=== PATIENT | female | born 1985 | race Caucasian/White ===

== ENCOUNTER 2017-02-10 14:09 | Observation (INO) | payer OTHER ==
[2017-02-10 14:16] VITALS: RESP 16; TEMP 98.3; O2SAT 100
[2017-02-10] MEDS ORDERED: Sodium Chloride 0.9% 1,000 ML IV STA ×2 (15:04→17:06)
--- NOTE | 2017-02-10 15:48 | ED PDOC ---
HPI: Female Pain Time Seen by Provider: 02/10/17 14:49 Chief Complaint (Nursing): Female Genitourinary Chief Complaint (Provider): Pelvic pain History Per: Patient History/Exam Limitations: no limitations Onset/Duration Of Symptoms: Hrs (x2) Current Symptoms Are (Timing): Still Present Additional Complaint(s): Galina Tyler is a 31 year old female with previous medical history of kidney stones, asthma and breast cancer, who presents to the emergency department with a complaint of sudden, severe pelvic pain associated with left back pain, nausea and bleeding (unknown if source came from vagina or urethra) status post inserting vaginal douche while showering 2 hours prior to arrival. Denied any further medical complaints. Patient has an IUD in place and stated pain is comparable to prior birthing and kidney stones experience. PMD: none provided Past Medical History Reviewed: Historical Data, Nursing Documentation, Vital Signs Vital Signs: Last Vital Signs Temp 98.3 F 02/10/17 14:14 Pulse 77 02/10/17 14:14 Resp 16 02/10/17 14:14 BP 117/66 02/10/17 14:14 Pulse Ox 100 02/10/17 14:14 - Medical History PMH: Asthma, Kidney Stones Other PMH: breast CA - Surgical History Surgical History: No Surg Hx - Family History Family History: States: Unknown Family Hx - Social History Current smoker - smoking cessation education provided: No Ex-Smoker (has not smoked in the last 12 months): No Alcohol: Social Drugs: Denies - Allergies Allergies/Adverse Reactions: Allergies Allergy/AdvReac Type Severity Reaction Status Date / Time Penicillins Allergy SWELLING Verified 02/10/17 14:14 Review of Systems ROS Statement: Except As Marked, All Systems Reviewed And Found Negative Constitutional: Negative for: Fever, Chills Gastrointestinal: Positive for: Nausea Genitourinary Female: Positive for: Hematuria (questionable), Vaginal Bleeding ( questionable), Pelvic Pain Musculoskeletal: Positive for: Back Pain (left) Physical Exam - Reviewed Nursing Documentation Reviewed: Yes Vital Signs Reviewed: Yes - Physical Exam Appears: Positive for: Well, Non-toxic, Uncomfortable (moderate discomfort; leaning forward in tripod postion due to pain) Head Exam: Positive for: ATRAUMATIC, NORMAL INSPECTION, NORMOCEPHALIC Skin: Positive for: Normal Color Respiratory: Positive for: Normal Breath Sounds, Accessory Muscle Use. Negative for: Decreased Breath Sounds, Crackles, Rales, Rhonchi, Respiratory Distress Gastrointestinal/Abdominal: Positive for: Soft, Tenderness (suprapubic). Negative for: Normal Exam Back: Positive for: R CVA Tenderness. Negative for: Normal Inspection, L CVA Tenderness Extremity: Positive for: Normal ROM. Negative for: Tenderness, Pedal Edema, Deformity Neurologic/Psych: Positive for: Alert, Oriented, Mood/Affect (crying) - Laboratory Results Result Diagrams: 02/10/17 15:44 02/10/17 15:44 - ECG O2 Sat by Pulse Oximetry: 100 (RA) Pulse Ox Interpretation: Normal Medical Decision Making Medical Decision Making: Initial Impression: Acute pelvic pain R/O ; kidney stones Initial Plan: * CT ABD/pelvis without PO contrast * BMP * Urine dipstick * CBC * NS 1,000ml IC per 1,000mls/hr * Toradol 30mg IVP * Zofran INJ 4mg IVP * Urinalysis Scribe Attestation: Documented by Azra Correia, acting as a scribe for Daria Snyder MD. Provider Scribe Attestation: All medical record entries made by the Scribe were at my direction and personally dictated by me. I have reviewed the chart and agree that the record accurately reflects my personal performance of the history, physical exam, medical decision making, and the department course for this patient. I have also personally directed, reviewed, and agree with the discharge instructions and disposition. Disposition - Clinical Impression Clinical Impression: Pelvic pain, Flank pain - Patient ED Disposition Is Patient to be Admitted: Transfer of Care - Disposition Disposition: Transfer of Care Disposition Time: 16:59 Condition: GUARDED Forms: [employer] (Turkmen) Patient Signed Over To: Zeenat Perdomo
[2017-02-10 15:56] LABS: BASO % 0.3 % (0.0-2.0); EOS % 0.2 % (0.0-4.0); HEMATOCRIT 45.9 % (34.0-47.0); LYMPH # 1.1 K/uL (1.0-4.3); LYMPH % 8.6 % (20.0-40.0); MEAN CELL VOLUME 98.8 fl (81.0-99.0); MEAN CORPUSCULAR HEMOGLOBIN 33.2 pg (27.0-31.0); MEAN CORPUSCULAR HGB CONC 33.5 g/dL (33.0-37.0); MEAN PLATELET VOLUME 9.2 fl (7.2-11.7); MONO # 0.7 K/uL (0.0-0.8); MONO % 5.4 % (0.0-10.0); NEUT # 11.2 K/uL (1.8-7.0); NEUT % 85.5 % (50.0-75.0); NRBC % 0.1 % (0.0-0.0); PLATELET COUNT 242 K/uL (130-400); WHITE BLOOD COUNT 13.1 K/uL (4.8-10.8)
[2017-02-10 16:06] LABS: BLOOD UREA NITROGEN 12 mg/dl (7-17); CALCIUM 9.4 mg/dL (8.4-10.2); CARBON DIOXIDE 20 mmol/L (22-30); CHLORIDE 105 mmol/L (98-107); GFR AFRICAN-AMERICAN > 60; GLUCOSE,RANDOM 83 mg/dL (65-105); SODIUM 142 mmol/l (132-148)
[2017-02-10 16:24] VITALS: BP 118/74; PULSE 85
--- NOTE | 2017-02-10 18:04 | CT ---
PROCEDURE: CT Abdomen and Pelvis without intravenous contrast HISTORY: flank pain acute, h/o kidney stones COMPARISON: None. TECHNIQUE: CT scan of the abdomen and pelvis was performed without administration of intravenous contrast. Oral contrast was not administered. Coronal and sagittal reformatted images were obtained. Radiation dose: Total exam DLP = 658.06 mGy-cm. This CT exam was performed using one or more of the following dose reduction techniques: Automated exposure control, adjustment of the mA and/or kV according to patient size, and/or use of iterative reconstruction technique. FINDINGS: LOWER THORAX: The lung bases are clear. LIVER: The liver is normal in size. No gross lesion or ductal dilatation. GALLBLADDER AND BILE DUCTS: There are no calcified gallstones. PANCREAS: The pancreas is normal in size. No gross lesion or ductal dilatation. SPLEEN: The spleen is normal in size. ADRENALS: Both adrenal glands are normal in size without discrete nodule. KIDNEYS AND URETERS: Both kidneys are normal in size. There are small nonobstructing stones in the right kidney measuring up to 3 mm. VASCULATURE: No aortic aneurysm. BOWEL: The small bowel loops are normal in caliber. There is moderate amount of stool in the colon. No bowel dilatation or obstruction. APPENDIX: Normal appendix. PERITONEUM: No free fluid. No free air. LYMPH NODES: No enlarged lymph nodes. BLADDER: Partially decompressed. REPRODUCTIVE: The uterus is anteverted and normal in size. An IUD remains in satisfactory position BONES: No acute fracture. Within normal limits for the patient's age. OTHER FINDINGS: None. IMPRESSION: 1. Small nonobstructing stones in the right kidney measuring up to 3 mm. No evidence of hydronephrosis or obstructive uropathy. 2. No CT evidence for acute appendicitis. 3. Constipation.
[2017-02-10 18:29] LABS: RBC URINE 7 /hpf (0-3); URINE BILIRUBIN NEGATIVE (NEGATIVE); URINE BLOOD SMALL (NEGATIVE); URINE COLOR YELLOW (YELLOW); URINE GLUCOSE (UA) NEG (Normal); URINE KETONE 80 mg/dL (NEGATIVE); URINE LEUKOCYTE ESTERASE TRACE Leu/uL (Negative); URINE PROTEIN NEGATIVE (NEGATIVE); URINE UROBILINOGEN 0.2-1.0 mg/dL (0.2-1.0); WBC URINE 3 /hpf (0-5)
[2017-02-10] MEDS ORDERED: levoFLOXacin 500 MG TAB PO STA (18:31)
[2017-02-10 18:39] LABS: EOSINOPHIL 1 % (0-7); LARGE PLATELETS PRESENT; NEUTROPHIL 83 % (42-75); TOTAL CELLS COUNTED 100
--- NOTE | 2017-02-10 18:46 | ED PDOC ---
- Laboratory Results Result Diagrams: 02/10/17 15:44 02/10/17 15:44 - ECG O2 Sat by Pulse Oximetry: 100 (RA) Pulse Ox Interpretation: Normal Medical Decision Making Medical Decision Making: Time: 1699 --Patient was endorsed to provider by Dr. Daria Snyder. Pending CT results. Time: 1899 --Patient signed out to Dr. Andrew Nuñez. Pending US results. Scribe Attestation: Documented by Azra Correia, acting as a scribe for Zeenat Perdomo MD. Provider Scribe Attestation: All medical record entries made by the Scribe were at my direction and personally dictated by me. I have reviewed the chart and agree that the record accurately reflects my personal performance of the history, physical exam, medical decision making, and the department course for this patient. I have also personally directed, reviewed, and agree with the discharge instructions and disposition. Disposition - Clinical Impression Clinical Impression: Pelvic pain, Hemorrhagic cyst, PID (acute pelvic inflammatory disease) - POA Present On Arrival: None - Disposition Disposition: Transfer of Care Disposition Time: 17:00 Condition: STABLE Patient Signed Over To: Andrew Nuñez ED OBSERVATION Date of observation admission: 02/10/17 Time of observation admission: 17:00 - Observation admission statement Patient is placed on observation because of need: for further pain management ( pelvic pain) - Goals of Observation Goals of Observation: Resolution of symptoms - Progress Note Progress Note: Time: 183 --Patient is resting comfortably with stable vital signs. Physical Exam - Physical Exam Pelvic Exam: Positive for: External Exam Normal, Tender W/Cervical Motion, Tender Adnexa, Tender Uterus. Negative for: No Masses, Active Bleeding, Blood, Discharge, Lesions, Ulcers
--- NOTE | 2017-02-10 19:59 | ED PDOC ---
- Laboratory Results Result Diagrams: 02/10/17 15:44 02/10/17 15:44 - ECG O2 Sat by Pulse Oximetry: 100 (RA) Pulse Ox Interpretation: Normal Medical Decision Making Medical Decision Making: Time: 1899 --Patient was endorsed to provider by Dr. Zeenat Perdomo. Pending US results. 830PM U/S IMPRESSION: 1. Complex right ovarian 3.2 cm may represent a hemorrhagic cyst, however this is not certain and a followup ultrasound in 6-12 weeks is recommended to document resolution. 2. Small free fluid in the left adnexa. 3. Appropriately positioned intrauterine device. Pt. seen and examined at bedside, states she's starting to feel better. Results explained to patient. 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 understands this and will f/u w/ ALUMINUM SIDING MECHANIC. Pelvic rest instructions given ( cessation from vaginal intercourse, tampons, etc.). Return precautions given. SOCIOLOGY RESEARCH ASSISTANT searched- negative. Discussed risks/benefits and alternatives to tramadol usage, patient understands the risks of opiate addiction and abuse. Will d/c home. Scribe Attestation: Documented by Azra Correia, acting as a scribe for Andrew Nuñez MD. Provider Scribe Attestation: All medical record entries made by the Scribe were at my direction and personally dictated by me. I have reviewed the chart and agree that the record accurately reflects my personal performance of the history, physical exam, medical decision making, and the department course for this patient. I have also personally directed, reviewed, and agree with the discharge instructions and disposition. Disposition - Clinical Impression Clinical Impression: Pelvic pain, Hemorrhagic cyst - POA Present On Arrival: None - Disposition Disposition: Routine/Home Disposition Time: 20:41 Condition: STABLE
--- NOTE | 2017-02-11 12:11 | US ---
HISTORY: Suprapubic pain COMPARISON: None available. TECHNIQUE: Transabdominal and transvaginal FINDINGS: UTERUS: Measures 8.6 x 4.3 x 4.6 cm. Normal in size and appearance. No fibroid or other mass lesion seen. ENDOMETRIUM: Limited evaluation due to the presence of an intrauterine device. The intrauterine device is appropriately positioned centrally within the endometrial echo complex. CERVIX: No cervical abnormality identified. RIGHT OVARY: Measures 4.0 x 3.9 x 3.7 cm. Complex cyst, 3.2 x 2.8 x 3.0 cm. Heterogeneous with cystic spaces within. Possible resolving hemorrhagic cyst. Recommend followup transvaginal pelvic ultrasound examination in 6-8 weeks to assess for interval change. Normal flow. LEFT OVARY: Measures 2.5 x 1.3 x 2.5 cm. No solid mass. Normal flow. FREE FLUID: Moderate free fluid in pelvis. Nonspecific. OTHER FINDINGS: None. IMPRESSION: Moderate free fluid in pelvis of uncertain etiology. Complex right ovarian cyst, 3.2 cm greatest dimension. Possible resolving hemorrhagic cyst. Recommend followup transvaginal pelvic ultrasound examination in 6-8 weeks. Intrauterine device appropriately positioned within uterus. Preliminary interpretation of this examination was reported by [facility] at 6:21 p.m. on 02/10/2017. There is concurrence of this report with the preliminary interpretation.
== END 2017-02-10 20:44 | disposition home or self-care (01) ==
LOC: H.ER 14:09 → H.EROBSV 17:00
PROVIDERS: ADMIT Emergency Medicine; ATTEND Emergency Medicine
DX: R10.2 Pelvic and perineal pain (principal); N73.0 Acute parametritis and pelvic cellulitis; J45.909 Unspecified asthma, uncomplicated; Z85.3 Personal history of malignant neoplasm of breast; Z87.442 Personal history of urinary calculi; Z97.5 Presence of (intrauterine) contraceptive device
CPT/HCPCS: 74176; 76830; 76856; 80048; 81003; 81025; 85025; 87070; 87491; 87591; 96374; 96375; 96376; 99285; G0378; J1885; J2270; J2405; J7040

== ENCOUNTER 2017-02-11 15:55 | Emergency (ER) | payer OTHER ==
[2017-02-11 16:04] VITALS: TEMP 98.8; O2SAT 100
[2017-02-11] MEDS ORDERED: Sodium Chloride 0.9% 1,000 ML IV SCH (16:45)
[2017-02-11 17:06] LABS: BASO # 0.1 K/uL (0.0-0.2); EOS # 0.1 K/uL (0.0-0.7); EOS % 2.2 % (0.0-4.0); HEMATOCRIT 41.6 % (34.0-47.0); LYMPH # 2.2 K/uL (1.0-4.3); LYMPH % 34.1 % (20.0-40.0); MEAN CORPUSCULAR HEMOGLOBIN 33.3 pg (27.0-31.0); MEAN CORPUSCULAR HGB CONC 33.6 g/dL (33.0-37.0); MEAN PLATELET VOLUME 8.9 fl (7.2-11.7); MONO # 0.7 K/uL (0.0-0.8); MONO % 10.5 % (0.0-10.0); NEUT # 3.4 K/uL (1.8-7.0); NEUT % 52.2 % (50.0-75.0); RED CELL DISTRIBUTION WIDTH 13.1 % (11.5-14.5); WHITE BLOOD COUNT 6.5 K/uL (4.8-10.8)
[2017-02-11] MEDS ORDERED: DiphenhydrAMINE 50 mg/ml Inj IVP STA (17:07)
[2017-02-11 17:14] LABS: ALB/GLOB RATIO 1.4 (1.0-2.1); ALKALINE PHOSPHATASE 46 U/L (38-126); ALT/SGPT 27 U/L (9-52); AST/SGOT 27 U/L (14-36); BILIRUBIN,TOTAL 0.6 mg/dl (0.2-1.3); BLOOD UREA NITROGEN 9 mg/dl (7-17); CALCIUM 9.1 mg/dL (8.4-10.2); CARBON DIOXIDE 24 mmol/L (22-30); CHLORIDE 102 mmol/L (98-107); GFR AFRICAN-AMERICAN > 60; GLUCOSE,RANDOM 95 mg/dL (65-105); LIPASE 48 U/L (23-300); MAGNESIUM 1.8 MG/DL (1.6-2.3); POTASSIUM 3.9 MMOL/L (3.6-5.0); SODIUM 138 mmol/l (132-148); TOTAL PROTEIN 7.6 G/DL (6.3-8.2)
[2017-02-11 19:01] VITALS: BP 128/78; PULSE 79; RESP 18
== END 2017-02-11 19:23 | disposition home or self-care (01) ==
LOC: H.ER 15:55
DX: N83.291 Other ovarian cyst, right side (principal); N39.0 Urinary tract infection, site not specified; C50.919 Malignant neoplasm of unspecified site of unspecified female breast
CPT/HCPCS: 76700; 76830; 76856; 80053; 81025; 83690; 83735; 84100; 85025; 87491; 87591; 96361; 96374; 96375; 99284; J1200; J2270; J2765; J7040

== ENCOUNTER 2017-06-11 18:47 | Emergency (ER) | payer OTHER ==
[2017-06-11 19:38] VITALS: BP 130/72; PULSE 79; RESP 18; TEMP 98.3; O2SAT 99
--- NOTE | 2017-06-11 20:28 | ED PDOC ---
HPI: Back Time Seen by Provider: 06/11/17 20:26 Chief Complaint (Nursing): Back Pain Chief Complaint (Provider): back pain History Per: Patient (31 y/o female here with left side back pain noted at night worsening today with walking down stairs or movement. Denies any dysuria/ hematuria/fevers/chills. Has h/o kidney stones/ovarian cyst/pyelonephritis and is concerned for this. No vomiting noted. Has h/o spinal stenosis.) Past Medical History Reviewed: Historical Data, Nursing Documentation, Vital Signs Vital Signs: Last Vital Signs Temp 98.3 F 06/11/17 19:34 Pulse 79 06/11/17 19:34 Resp 18 06/11/17 19:34 BP 130/72 06/11/17 19:34 Pulse Ox 99 06/11/17 19:34 - Medical History PMH: Asthma, Kidney Stones, Chronic Kidney Disease - Family History Family History: States: Unknown Family Hx - Home Medications Home Medications: Ambulatory Orders Medication Instructions Recorded Ibuprofen [Motrin Tab] 600 mg PO Q6 #30 tab 02/10/17 levoFLOXacin [Levaquin] 500 mg PO DAILY #13 tab 02/10/17 metroNIDAZOLE [Flagyl] 500 mg PO BID #27 tab 02/10/17 traMADol [Ultram] 50 mg PO TID #15 tab 02/10/17 Naproxen 1 tab PO Q12 PRN #14 tab 06/11/17 diaZEpam [Valium] 5 mg PO Q6 PRN #5 tab 06/11/17 - Allergies Allergies/Adverse Reactions: Allergies Allergy/AdvReac Type Severity Reaction Status Date / Time Penicillins Allergy SWELLING Verified 06/11/17 19:34 Review of Systems ROS Statement: Except As Marked, All Systems Reviewed And Found Negative Musculoskeletal: Positive for: Back Pain Physical Exam - Reviewed Nursing Documentation Reviewed: Yes Vital Signs Reviewed: Yes - Physical Exam Appears: Positive for: Well, Non-toxic, No Acute Distress Head Exam: Positive for: ATRAUMATIC, NORMAL INSPECTION, NORMOCEPHALIC Skin: Positive for: Normal Color, Warm, DRY Eye Exam: Positive for: EOMI, Normal appearance, PERRL ENT: Positive for: Normal ENT Inspection Neck: Positive for: Normal, Painless ROM Cardiovascular/Chest: Positive for: Regular Rate, Rhythm Respiratory: Positive for: CNT, Normal Breath Sounds Gastrointestinal/Abdominal: Positive for: Normal Exam, Bowel Sounds, Soft Back: Positive for: Normal Inspection, Vertebral Tenderness (left paralumbar tenderness noted. No spinal tenderness.) Extremity: Positive for: Normal ROM Neurologic/Psych: Positive for: Alert, Oriented - Laboratory Results Result Diagrams: 06/11/17 20:43 06/11/17 20:43 - ECG O2 Sat by Pulse Oximetry: 99 - Progress ED Course And Treament: toradol 15 mg iv x 1 dose dilaudid 0.5 mg iv x [address]: NAD Disposition - Clinical Impression Clinical Impression: Back strain - Patient ED Disposition Is Patient to be Admitted: No - Disposition Disposition: Routine/Home Disposition Time: 21:13 Condition: FAIR Prescriptions: diaZEpam [Valium] 5 mg PO Q6 PRN #5 tab PRN Reason: Pain, Moderate (4-7) Naproxen 1 tab PO Q12 PRN #14 tab PRN Reason: Pain, Moderate (4-7) Instructions: Muscle Strain (ED) Forms: [employer] (North Korean), [facility] ED School/Work Excuse
[2017-06-11 20:49] LABS: BASO # 0.1 K/uL (0.0-0.2); EOS # 0.3 K/uL (0.0-0.7); EOS % 3.2 % (0.0-4.0); HEMOGLOBIN 14.5 g/dL (12.0-16.0); LYMPH # 2.4 K/uL (1.0-4.3); LYMPH % 30.2 % (20.0-40.0); MEAN CELL VOLUME 97.9 fl (81.0-99.0); MEAN CORPUSCULAR HEMOGLOBIN 33.7 pg (27.0-31.0); MEAN CORPUSCULAR HGB CONC 34.5 g/dL (33.0-37.0); MEAN PLATELET VOLUME 8.9 fl (7.2-11.7); MONO # 0.9 K/uL (0.0-0.8); MONO % 11.7 % (0.0-10.0); NEUT # 4.3 K/uL (1.8-7.0); NEUT % 53.9 % (50.0-75.0); NRBC % 0.2 % (0.0-0.0); RBC 4.29 Mil/uL (3.80-5.20); RED CELL DISTRIBUTION WIDTH 13.1 % (11.5-14.5)
[2017-06-11 20:52] LABS: SQUAMOUS EPITHIAL < 1 /hpf (0-5); URINE BILIRUBIN NEGATIVE (NEGATIVE); URINE BLOOD NEGATIVE (NEGATIVE); URINE CLARITY SLIGHTY-CLOUDY (Clear); URINE COLOR YELLOW (YELLOW); URINE GLUCOSE (UA) NEG (Normal); URINE LEUKOCYTE ESTERASE NEG Leu/uL (Negative); URINE NITRATE NEGATIVE (NEGATIVE); URINE PROTEIN NEGATIVE (NEGATIVE); URINE UROBILINOGEN 0.2-1.0 mg/dL (0.2-1.0)
[2017-06-11 20:59] LABS: ALB/GLOB RATIO 1.3 (1.0-2.1); ALBUMIN 4.3 g/dL (3.5-5.0); ALT/SGPT 32 U/L (9-52); AST/SGOT 21 U/L (14-36); BLOOD UREA NITROGEN 12 mg/dl (7-17); CALCIUM 9.1 mg/dL (8.4-10.2); GFR AFRICAN-AMERICAN > 60; GFR NON-AFRICAN AMERICAN > 60; LIPASE 560 U/L (23-300)
[2017-06-11] MEDS ORDERED: Iohexol 240 (50 ml) PO STA (21:18)
[2017-06-11] MEDS ORDERED: Iohexol 240 (50 ml) ONE (21:27)
[2017-06-11] MEDS ORDERED: HYDROmorphone 0.5 mg/0.5 ml ISec IVP STA (21:53)
[2017-06-11] MEDS ORDERED: Sodium Chloride 0.9% 50 ML IV ONE (23:04)
[2017-06-11] MEDS ORDERED: Iohexol 300 100 ML IJ ONE (23:04)
--- NOTE | 2017-06-12 09:42 | CT ---
PROCEDURE: CT Abdomen and Pelvis with contrast HISTORY: r/o pancreatitis COMPARISON: CT scan of the abdomen and pelvis dated 02/10/2017 TECHNIQUE: Contrast dose: 90 mL Omnipaque 300 Radiation dose: Total exam DLP = 448.1 mGy-cm. This CT exam was performed using one or more of the following dose reduction techniques: Automated exposure control, adjustment of the mA and/or kV according to patient size, and/or use of iterative reconstruction technique. FINDINGS: LOWER THORAX: Unremarkable. LIVER: Unremarkable. No gross lesion or ductal dilatation. GALLBLADDER AND BILE DUCTS: Unremarkable. PANCREAS: Unremarkable. No gross lesion or ductal dilatation. SPLEEN: Unremarkable. ADRENALS: Unremarkable. No mass. KIDNEYS AND URETERS: Unremarkable. No hydronephrosis. No solid mass. VASCULATURE: Unremarkable. No aortic aneurysm. BOWEL: Unremarkable. No obstruction. No gross mural thickening. APPENDIX: Normal appendix. PERITONEUM: Unremarkable. No free fluid. No free air. LYMPH NODES: Unremarkable. No enlarged lymph nodes. BLADDER: Unremarkable. REPRODUCTIVE: Intrauterine device in place. BONES: No acute fracture. OTHER FINDINGS: None. IMPRESSION: Unremarkable contrast enhanced CT of the abdomen and pelvis.
== END 2017-06-12 00:39 | disposition home or self-care (01) ==
LOC: H.ER 18:47
DX: S39.012A Strain of muscle, fascia and tendon of lower back, initial encounter (principal); X50.9XXA Other and unspecified overexertion or strenuous movements or postures, initial encounter; Y92.89 Other specified places as the place of occurrence of the external cause; J45.909 Unspecified asthma, uncomplicated; N18.9 Chronic kidney disease, unspecified; Z88.0 Allergy status to penicillin; Z87.442 Personal history of urinary calculi
CPT/HCPCS: 74177; 80053; 81003; 81025; 83690; 85025; 87086; 96374; 96375; 99281; J1170; J1885; Q9966; Q9967